=== PATIENT | male | born 1980 | race Two or more races ===

== ENCOUNTER 2022-08-25 09:28 | Emergency (ER) | payer MEDICAID ==
[~2022-08-25] VITALS: Ht 172.7 cm; Wt 109.0 kg
[2022-08-25] MEDS ORDERED: MEPERIDINE HCL (50 MG/ML) 1 ML VIAL IM ONE (10:45)
[2022-08-25] MEDS ORDERED: PROMETHAZINE HCL 25 MG/ML 1ML IM ONE (10:45)
[2022-08-25 11:01] VITALS: BP 144/89
== END 2022-08-25 11:35 | disposition home or self-care (01) ==
LOC: ER 09:28
DX: G89.18 Other acute postprocedural pain (principal); Z88.0 Allergy status to penicillin
CPT/HCPCS: 96372; 99284; J2175; J2550